=== PATIENT | male | born 1990 | race Caucasian/White ===

== ENCOUNTER 2017-08-13 21:29 | Emergency (ER) | payer MEDICAID, OTHER | END 2017-08-14 03:54 | disposition home or self-care (01) | LOC: FTE 08-14 03:54 | DX: S02.19XA Other fracture of base of skull, initial encounter for closed fracture (principal); Y09 Assault by unspecified means; Y92.512 Supermarket, store or market as the place of occurrence of the external cause | CPT/HCPCS: 70480; 99284-25 ==